=== PATIENT | female | born 1970 | race Two or more races ===

== ENCOUNTER 2018-12-22 12:48 | Emergency (ER) | payer OTHER, SELFPAY ==
[~2018-12-22] VITALS: Ht 172.7 cm; Wt 85.1 kg
[2018-12-22] MEDS ORDERED: MAALOX/HYOSCYAMINE/LIDOCAINE 45 ML BTL ONE (13:26)
[2018-12-22] MEDS ORDERED: MAALOX/HYOSCYAMINE/LIDOCAINE 45 ML BTL PO ONE (13:30)
[2018-12-22 13:55] LABS: BASOPHILS % (AUTO) 0 % (0-1); EOSINOPHILS % (AUTO) 0 % (1-7); LYMPHOCYTES # (AUTO) 0.91 x10^3/uL (1-3.4); LYMPHOCYTES % (AUTO) 8 % (22-44); MD NO; MEAN CORPUSCULAR HEMOGLOBIN 31.3 pg (27.0-34.8); MEAN CORPUSCULAR VOLUME 94.9 fL (80-100); MEAN PLATELET VOLUME 9.1 fL (7.4-10.4); MONOCYTES # (AUTO) 0.22 x10^3/uL (0.2-0.8); MONOCYTES % (AUTO) 2 % (2-9); NEUTROPHILS % (AUTO) 90 % (42-75); PLATELET COUNT 212 x10^3/uL (130-400); RED BLOOD COUNT 4.47 x10^6/uL (3.82-5.3); RED CELL DISTRIBUTION WIDTH 13.3 % (9.6-15.2)
[2018-12-22 14:02] LABS: ALANINE AMINOTRANSFERASE 33 U/L (12-78); ALBUMIN 3.5 g/dL (3.4-5.0); ANION GAP 8 mmol/L (5-15); CALCIUM 8.5 mg/dL (8.5-10.1); CHLORIDE 110 mmol/L (98-107); CREATININE 0.72 mg/dL (0.55-1.02)
[2018-12-22 14:05] LABS: ALKALINE PHOSPHATASE 126 U/L (45-117); TOTAL PROTEIN 7.4 g/dL (6.4-8.2)
[2018-12-22 14:07] LABS: BILIRUBIN,TOTAL < 0.1 mg/dL (0.2-1.0)
--- NOTE | 2018-12-22 14:09 | NUR ---
KRISTINE RN: ALL RESULTS BACK AT THIS TIME, CHART UP FOR RECHECK
[2018-12-22 15:03] VITALS: BP 121/63
--- NOTE | 2018-12-22 15:04 | NUR ---
pt upright on gurney awake & more comfortable after GI cocktail, [place]-speaking but responds approp to staff, NAD, comfort measures provided, daughter at BS, call light within reach.
--- NOTE | 2018-12-22 15:38 | NUR ---
Patient given discharge instructions and Rx, they have confirmed that they understand the instructions. Patient ambulatory with steady gait.
== END 2018-12-22 15:38 | disposition home or self-care (01) ==
LOC: ED 13:42
DX: K29.00 Acute gastritis without bleeding (principal)
CPT/HCPCS: 36415; 80053; 83690; 85025; 99283